=== PATIENT | male | born 1990 | race Caucasian/White ===

== ENCOUNTER 2016-10-23 17:11 | Emergency (ER) | payer SELFPAY ==
[2016-10-23 17:17] VITALS: BP 139/84; PULSE 76; RESP 20; TEMP 98.5
--- NOTE | 2016-10-23 17:29 | ED ---
General Adult HPI - General Chief complaint: Extremity Problem,Nontraumatic Stated complaint: RT ARM SWELLING/PAIN Time Seen by Provider: 10/23/16 17:21 Source: patient, RN notes reviewed Mode of arrival: ambulatory Limitations: no limitations - History of Present Illness Initial comments: Patient 26-year-old male who presents emergency room today with a chief complaint of increased pain to the right elbow was swelling. Does admit that he was seen in the emergency room approximately a week ago diagnosed with bursitis. States he was placed on antibiotics along with steroids and pain medication. He states he is taking his medications with no relief the symptoms. He does admit to 3 days ago he slipped on the ice falling down landing on the right elbow. States that his noticed some increased swelling to the area. States still having tenderness with flexion. He denies any other complaints or symptoms. Patient denies any recent fever, chills, shortness of breath, chest pain, back pain, abdominal pain, nausea or vomiting, numbness or tingling, dysuria or hematuria, constipation or diarrhea, headaches or visual changes, or any other complaints. - Related Data Home Medications Medication Instructions Recorded Confirmed [id number] 2 tab PO Q8H PRN 10/23/16 10/23/16 [Excedrin] Previous Rx's Medication Instructions Recorded Cephalexin [Keflex] 500 mg PO Q12HR 10 Days 10/23/16 Allergies Allergy/AdvReac Type Severity Reaction Status Date / Time nightshade Allergy Unknown Uncoded 10/23/16 17:17 Review of Systems ROS Statement: Those systems with pertinent positive or pertinent negative responses have been documented in the HPI. ROS Other: All systems not noted in ROS Statement are negative. Past Medical History Additional Past Medical History / Comment(s): cysts on kidneys History of Any Multi-Drug Resistant Organisms: None Reported Past Surgical History: No Surgical Hx Reported Past Psychological History: Anxiety, Bipolar, Depression Smoking Status: Current every day smoker Past Alcohol Use History: Occasional Past Drug Use History: Marijuana General Exam - General Exam Comments Initial Comments: General: The patient is awake and alert, in no distress, and does not appear acutely ill. Neck: The neck is supple, there is no tenderness or JVD. Cardiovascular: There is a regular rate and rhythm. No murmur, rub or gallop is appreciated. Respiratory: Lungs are clear to auscultation, respirations are non-labored, breath sounds are equal. No wheezes, stridor, rales, or rhonchi. Musculoskeletal: Mild swelling to the right elbow and forearm. Patient shows full range motion with flexion and extension. Sensations are intact pulses are bilaterally 2+. Strength 5/5. Mild tenderness to the posterior olecranon. Neurological: A&O x 3. CN II-XII intact, There are no obvious motor or sensory deficits. Coordination appears grossly intact. Speech is normal. Skin: Skin is warm and dry and no rashes or lesions are noted. Psychiatric: Normal mood and affect. Limitations: no limitations Course Vital Signs 10/23/16 17:14 Temperature 98.5 F Pulse Rate 76 Respiratory 20 Rate Blood Pressure 139/84 O2 Sat by Pulse 98 Oximetry Medical Decision Making - Medical Decision Making Patient reexamined at this time shows no signs of distress. Patient was also seen by attending physician Dr. Pollard. Patient's x-rays are unremarkable. Advised covered with antibiotics of Keflex for cellulitis. Advised to follow- up family doctor Disposition Clinical Impression: Cellulitis Disposition: HOME SELF-CARE Condition: Good Instructions: Cellulitis (ED) Additional Instructions: Please use medication as discussed. Please follow-up with family doctor in the next 2 days of symptoms have not improved. Please return to emergency room if the symptoms increase or worsen or for any other concerns. Prescriptions: Cephalexin [Keflex] 500 mg PO Q12HR 10 Days Referrals: None,Stated [Primary Care Provider] - 1-2 days Narayan Calvin MD [REFERRING] - 1-2 days Jeremiah Boykin MD [Medical Doctor] - 1-2 days Time of Disposition: 18:15
--- NOTE | 2016-10-23 18:03 | XR ---
EXAMINATION TYPE: XR elbow complete RT DATE OF EXAM: 10/23/2016 5:56 PM CLINICAL HISTORY: Right elbow pain after injury a few days ago TECHNIQUE: Frontal, lateral and oblique images of the right elbow are obtained. COMPARISON: None FINDINGS: There is no acute fracture/dislocation evident in the right elbow. No abnormal fat pad si gns are seen. Mild subcutaneous edema is present along the ulnar aspect. IMPRESSION: There is no acute fracture or dislocation in the right elbow.
== END 2016-10-23 18:30 | disposition home or self-care (01) ==
LOC: EC 17:11
DX: L03.113 Cellulitis of right upper limb (principal); F17.200 Nicotine dependence, unspecified, uncomplicated
CPT/HCPCS: 99283

== ENCOUNTER 2017-10-31 04:37 | Inpatient (IN) | payer MEDICAID, OTHER ==
[2017-10-31 06:11] LABS: Amphetamine Screen,Urine Not Detected (NotDetected); Barbiturate Screen,Urine Not Detected (NotDetected); Benzodiazepines Screen,Urine Not Detected (NotDetected); Cocaine Screen,Urine Detected (NotDetected); Methadone Screen, Urine Not Detected (NotDetected); Opiate Screen,Urine Not Detected (NotDetected); Oxycodone Screen, Urine Not Detected (NotDetected); Phencyclidine Screen,Urine Not Detected (NotDetected); Tricyclic Antidepressant,Urine Not Detected (NotDetected); Urn Cannabinoid Scrn Detected (NotDetected)
[2017-10-31 06:17] LABS: Basophils % (A) 0 %; Eosinophils # (A) 0.2 k/uL (0-0.7); Eosinophils % (A) 2 %; HCT 53.4 % (39.0-53.0); HGB 18.6 gm/dL (13.0-17.5); Lymphocytes # (A) 2.1 k/uL (1.0-4.8); Lymphocytes % (A) 21 %; MCH 32.4 pg (25.0-35.0); MCHC 34.7 g/dL (31.0-37.0); MCV 93.2 fL (80.0-100.0); Mean Platelet Volume 6.6; Monocytes # (A) 0.6 k/uL (0-1.0); Monocytes % (A) 6 %; Neutrophils # (A) 6.9 k/uL (1.3-7.7); Neutrophils % (A) 70 %; Platelet Count 203 k/uL (150-450); RBC 5.73 m/uL (4.30-5.90); RDW 12.6 % (11.5-15.5)
[2017-10-31 06:23] LABS: Acetaminophen <10.0 ug/mL; Alcohol 13 mg/dL; Anion Gap 17 mmol/L; Blood Urea Nitrogen 11 mg/dL (9-20); Calcium 10.2 mg/dL (8.4-10.2); Carbon Dioxide 22 mmol/L (22-30); Chloride 105 mmol/L (98-107); Glucose 94 mg/dL (74-99); Potassium 4.1 mmol/L (3.5-5.1); Sodium 144 mmol/L (137-145)
[2017-10-31] MEDS ORDERED: NICOTINE 14MG/24HR PATCH TRANSDERM STA (07:10)
--- NOTE | 2017-10-31 08:08 | ED ---
Psych HPI - General Chief Complaint: Psychiatric Symptoms Stated Complaint: suicidal Time Seen by Provider: 10/31/17 04:50 Source: patient Mode of arrival: ambulatory Limitations: physical limitation (Uncooperative with history and physical) - History of Present Illness Initial Comments: 's patient is 27-year-old man who is here to have psychiatric evaluation. It is reported to me that he made suicidal statements to have associated. He reportedly had a recent breakup. The patient is not forthcoming with me at all regarding the current situation. he is refusing to discuss the circumstances MD Complaint: suicidal ideation, feels depressed -: hour(s) Context: significant life stressor - Related Data Previous Rx's Medication Instructions Recorded FLUoxetine HCL [PROzac] 20 mg PO DAILY #30 cap 11/03/17 Imipramine [Tofranil] 25 mg PO HS #30 tab 11/03/17 Nicotine Polacrilex [Nicorette] 2 mg BUCCAL Q4HR PRN #0 gum 11/03/17 Allergies Allergy/AdvReac Type Severity Reaction Status Date / Time nightshade Allergy Mild Unknown Uncoded 10/31/17 10:07 Review of Systems ROS Statement: Those systems with pertinent positive or pertinent negative responses have been documented in the HPI. ROS Other: All systems not noted in ROS Statement are negative. Limitations: ROS unobtainable due to patients medical condition Past Medical History Additional Past Medical History / Comment(s): cysts on kidneys, cellulitus History of Any Multi-Drug Resistant Organisms: None Reported Past Surgical History: No Surgical Hx Reported Past Psychological History: ADD/ADHD, Anxiety, Bipolar, Depression Smoking Status: Current every day smoker Past Alcohol Use History: Occasional Past Drug Use History: Cocaine, Marijuana General Exam Limitations: no limitations General appearance: alert, in no apparent distress Head exam: Present: atraumatic, normocephalic Eye exam: Present: normal appearance. Absent: scleral icterus, conjunctival injection Neck exam: Present: normal inspection Respiratory exam: Present: normal lung sounds bilaterally. Absent: respiratory distress, wheezes, rales, rhonchi Cardiovascular Exam: Present: regular rate, normal rhythm, normal heart sounds GI/Abdominal exam: Present: soft. Absent: tenderness, guarding, rebound, rigid Neurological exam: Present: alert, normal gait Psychiatric exam: Present: agitated Skin exam: Present: warm, dry, normal color Course Vital Signs 10/31/17 10/31/17 04:46 08:58 Temperature 97.9 F 97.8 F Pulse Rate 116 H 94 Respiratory 18 16 Rate Blood Pressure 153/85 123/69 O2 Sat by Pulse 95 96 Oximetry Medical Decision Making - Medical Decision Making This patient is 27-year-old man who is brought in for depression and reportedly making suicidal statements. The patient was not fully forthcoming during the history and physical and will be admitted - Lab Data Result diagrams: 10/31/17 05:56 10/31/17 05:56 Lab Results 10/31/17 10/31/17 10/31/17 Range/Units 05:44 05:56 05:56 WBC 10.0 (3.8-10.6) k/uL RBC 5.73 (4.30-5.90) m/uL Hgb 18.6 H (13.0-17.5) gm/dL Hct 53.4 H (39.0-53.0) % MCV 93.2 (80.0-100.0) fL MCH 32.4 (25.0-35.0) pg MCHC 34.7 (31.0-37.0) g/dL RDW 12.6 (11.5-15.5) % Plt Count 203 (150-450) k/uL Neutrophils % 70 % Lymphocytes % 21 % Monocytes % 6 % Eosinophils % 2 % Basophils % 0 % Neutrophils # 6.9 (1.3-7.7) k/uL Lymphocytes # 2.1 (1.0-4.8) k/uL Monocytes # 0.6 (0-1.0) k/uL Eosinophils # 0.2 (0-0.7) k/uL Basophils # 0.0 (0-0.2) k/uL Sodium 144 (137-145) mmol/L Potassium 4.1 (3.5-5.1) mmol/L Chloride 105 (98-107) mmol/L Carbon Dioxide 22 (22-30) mmol/L Anion Gap 17 mmol/L BUN 11 (9-20) mg/dL Creatinine 0.84 (0.66-1.25) mg/dL Est GFR (MDRD) Af Amer >60 (>60 ml/min/1.73 sqM) Est GFR (MDRD) Non-Af >60 (>60 ml/min/1.73 sqM) Glucose 94 (74-99) mg/dL Calcium 10.2 (8.4-10.2) mg/dL TSH (0.465-4.680) mIU/L Urine Opiates Screen Not Detected (NotDetected) Ur Oxycodone Screen Not Detected (NotDetected) Urine Methadone Screen Not Detected (NotDetected) Ur Propoxyphene Screen Not Detected (NotDetected) Acetaminophen <10.0 ug/mL Ur Barbiturates Screen Not Detected (NotDetected) U Tricyclic Antidepress Not Detected (NotDetected) Ur Phencyclidine Scrn Not Detected (NotDetected) Ur Amphetamines Screen Not Detected (NotDetected) U Methamphetamines Scrn Not Detected (NotDetected) U Benzodiazepines Scrn Not Detected (NotDetected) Urine Cocaine Screen Detected H (NotDetected) U Marijuana (THC) Screen Detected H (NotDetected) Serum Alcohol 13 mg/dL 10/31/17 Range/Units 05:56 WBC (3.8-10.6) k/uL RBC (4.30-5.90) m/uL Hgb (13.0-17.5) gm/dL Hct (39.0-53.0) % MCV (80.0-100.0) fL MCH (25.0-35.0) pg MCHC (31.0-37.0) g/dL RDW (11.5-15.5) % Plt Count (150-450) k/uL Neutrophils % % Lymphocytes % % Monocytes % % Eosinophils % % Basophils % % Neutrophils # (1.3-7.7) k/uL Lymphocytes # (1.0-4.8) k/uL Monocytes # (0-1.0) k/uL Eosinophils # (0-0.7) k/uL Basophils # (0-0.2) k/uL Sodium (137-145) mmol/L Potassium (3.5-5.1) mmol/L Chloride (98-107) mmol/L Carbon Dioxide (22-30) mmol/L Anion Gap mmol/L BUN (9-20) mg/dL Creatinine (0.66-1.25) mg/dL Est GFR (MDRD) Af Amer (>60 ml/min/1.73 sqM) Est GFR (MDRD) Non-Af (>60 ml/min/1.73 sqM) Glucose (74-99) mg/dL Calcium (8.4-10.2) mg/dL TSH 1.140 (0.465-4.680) mIU/L Urine Opiates Screen (NotDetected) Ur Oxycodone Screen (NotDetected) Urine Methadone Screen (NotDetected) Ur Propoxyphene Screen (NotDetected) Acetaminophen ug/mL Ur Barbiturates Screen (NotDetected) U Tricyclic Antidepress (NotDetected) Ur Phencyclidine Scrn (NotDetected) Ur Amphetamines Screen (NotDetected) U Methamphetamines Scrn (NotDetected) U Benzodiazepines Scrn (NotDetected) Urine Cocaine Screen (NotDetected) U Marijuana (THC) Screen (NotDetected) Serum Alcohol mg/dL Disposition Clinical Impression: Depression, Suicidal ideation Disposition: ADMITTED IP TO THIS HOSP Condition: Fair
[2017-10-31 08:59] VITALS: RESP 16
[2017-10-31] MEDS ORDERED: ACETAMINOPHEN TAB 325 MG TAB PO PRN (10:03)
[2017-10-31] MEDS ORDERED: MAGNESIUM HYDROXIDE 2,400 MG/10 ML CUP PO PRN (10:03)
[2017-10-31] MEDS ORDERED: ZIPRASIDONE 20 MG VIAL IM PRN (10:03)
[2017-10-31] MEDS ORDERED: LORazepam 1 MG TAB PO PRN (10:03)
[2017-10-31] MEDS ORDERED: MAG HYDROX/AL HYDROX/SIMETH 30 ML CUP PO PRN (10:03)
--- NOTE | 2017-10-31 13:56 | P.HPMEDMHU ---
History of Present Illness H&P Date: 10/31/17 Chief Complaint: suicidal ideations 27 y/o male that comeswith suicidal ideation. Patient says he has had these feelings for lomg time. Bu got worse when his significant other left him.He has not tried to kill himself. Review of Systems Constitutional: Denies chills, Denies fever Eyes: denies blurred vision, denies pain Ears: right: ear discharge Ears, nose, mouth and throat: Denies headache, Denies sore throat Cardiovascular: Denies chest pain, Denies shortness of breath Respiratory: Denies cough, Denies hemoptysis, Denies pleurisy Gastrointestinal: Denies abdominal pain, Denies diarrhea, Denies nausea, Denies vomiting Musculoskeletal: Denies arm numbness/tingling, Denies leg numbness/tingling, Denies myalgias Integumentary: Denies rash Past Medical History Additional Past Medical History / Comment(s): cysts on kidneys, cellulitus History of Any Multi-Drug Resistant Organisms: None Reported Past Surgical History: No Surgical Hx Reported Past Psychological History: ADD/ADHD, Anxiety, Bipolar, Depression Smoking Status: Current every day smoker Past Alcohol Use History: Occasional Past Drug Use History: Cocaine, Marijuana Medications and Allergies Home Medications Medication Instructions Recorded Confirmed Type No Known Home Medications [No 10/31/17 10/31/17 History Known Home Medications] Allergies Allergy/AdvReac Type Severity Reaction Status Date / Time nightshade Allergy Mild Unknown Uncoded 10/31/17 10:07 Physical Exam Vitals: Vital Signs Temp Pulse Resp BP Pulse Ox 10/31/17 08:58 97.8 F 94 16 123/69 96 10/31/17 04:46 97.9 F 116 H 18 153/85 95 Intake and Output 10/30/17 10/31/17 10/31/17 22:59 06:59 14:59 Other: Weight 88.451 kg multiple peircing to fce and ears - Constitutional General appearance: no acute distress - EENT Eyes: EOMI, PERRLA Ears: bilateral: normal, negative: bulging, bullous, erythema - Neck Neck: no lymphadenopathy - Respiratory Respiratory: bilateral: CTA, negative: rales, rhonchi, wheezing - Cardiovascular Rhythm: regular Heart sounds: normal: S1, S2 - Gastrointestinal General gastrointestinal: normal bowel sounds - Integumentary muliple tattoos throughout body Integumentary: normal - Neurologic Neurologic: CNII-XII intact - Musculoskeletal Musculoskeletal: gait normal, strength equal bilaterally - Psychiatric Psychiatric: A&O x's 3, appropriate affect Cranial Nerve Examination - Cranial Nerves Cranial Nerve II- Optic: Intact Cranial Nerve III- Oculomotor: Intact Cranial Nerve IV- Trochlear: Intact Cranial Nerve V- Trigeminal: Intact Cranial Nerve - Abducens: Intact Cranial Nerve VII- Facial: Intact Cranial Nerve VIII- Auditory: Intact Cranial Nerve IX- Glossopharyngeal: Intact Cranial Nerve X- Vagus: Intact Cranial Nerve XI- Accessory: Intact Cranial Nerve XII- Hypoglossal: Intact Results CBC & Chem 7: 10/31/17 05:56 10/31/17 05:56 Labs: Abnormal Lab Results - Last 24 Hours (Table) 10/31/17 10/31/17 Range/Units 05:44 05:56 Hgb 18.6 H (13.0-17.5) gm/dL Hct 53.4 H (39.0-53.0) % Urine Cocaine Screen Detected H (NotDetected) U Marijuana (THC) Screen Detected H (NotDetected) Assessment and Plan (1) Depression Narrative/Plan: per psych Current Visit: Yes Status: Acute Code(s): F32.9 - MAJOR DEPRESSIVE DISORDER , SINGLE EPISODE, UNSPECIFIED SNOMED Code(s): 34636835 (2) Suicidal ideation Narrative/Plan: per psych Current Visit: Yes Status: Acute Code(s): R45.851 - SUICIDAL IDEATIONS SNOMED Code(s): 3387802
[2017-10-31] MEDS: NICOTINE 21MG/24HR PATCH TRANSDERM SCH (13:57)
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
[2017-11-01] MEDS: NICOTINE 21MG/24HR PATCH TRANSDERM SCH (08:43)
[2017-11-01] MEDS ORDERED: NICOTINE 14MG/24HR PATCH TRANSDERM SCH (09:00)
[2017-11-01] MEDS: FLUoxetine HCL 20 MG CAP PO SCH (13:31)
[2017-11-01] MEDS: NICOTINE POLACRILEX 2 MG GUM BUCCAL PRN ×3 (15:02→22:27)
--- NOTE | 2017-11-01 20:21 | PN ---
PROGRESS NOTE DATE OF SERVICE: 11/01/2017 CHIEF COMPLAINT: The patient was depressed. He had anxiety and panic symptoms. He has a history of PTSD symptoms. He has had a significant past history of substance use and ongoing daily use of marijuana at present. INTERVAL HISTORY: Patient has been doing fair. He had a quiet evening last night. He slept fair. Today he has been up and about. He attends groups. He comes out in the day area. He can be quite intense at times. Overall staff feel that he seems just a little more comfortable and a little less distressed compared to how he presented yesterday. When I talked to the patient he did have a calmer manner. He said that he would consider getting started on a medication that would have an indication for panic and depression in particular. He says he is very much opposed to pills because he has seen so many problems his mother has been going through, as she apparently abuses medications. The patient was willing to set up a meeting with his mother in order to work on some discharge issues. He acknowledges that there is stress between the two of them, though they do have an ongoing relationship, so it makes it difficult if at least some things are not a little more settled there. He has not had change in his general health. He tolerates his psychotropic medications. MENTAL STATUS: Patient gave fair eye contact. He was somewhat restless. His thoughts were clear. His affect was intense at times, his mood reserved. He seemed a little distressed. ASSESSMENT: I will continue the current diagnosis and treatment plan. I will start the patient on Prozac 20 mg a day. I had an extensive discussion with the patient regarding medication issues. He did ask a few questions about the role of marijuana, and I shared with him that it would need to be something he could look into once he is out of the hospital; however, there is very little information in psychiatric literature that there would be a role for marijuana for any treatment issues, though on the other hand there are significant studies indicating the potential risks in relationship to mood and anxiety disorders. We will set up a family meeting with the patient's mother as part of discharge planning. MMHOAL / EVITA: [id number] /
[2017-11-02 07:08] VITALS: TEMP 98.1
[2017-11-02] MEDS: FLUoxetine HCL 20 MG CAP PO SCH (08:30)
[2017-11-02] MEDS: NICOTINE POLACRILEX 2 MG GUM BUCCAL PRN ×3 (08:30→18:21)
[2017-11-02] MEDS ORDERED: OLANZapine 5 MG TAB PO ONE (12:59)
--- NOTE | 2017-11-02 16:40 | PN ---
PROGRESS NOTE DATE OF SERVICE: 11/02/2017. CHIEF COMPLAINT: The patient was depressed. He had anxiety and panic symptoms. He has a history of PTSD symptoms. He has had a significant past history of substance use and ongoing daily use of marijuana at present. INTERVAL HISTORY: Patient has been doing fair. He had a quiet evening last night. He was wondering about getting the medication for sleep as he says his sleep has not been consistently very good, particularly for quite a time leading up to his hospitalization. He does feel that he is ready to be discharged as he feels he can handle his situations at home. It is noted that we had a family meeting with the patient and his mother. It was a very contentious meeting. The patient spent most all of the time talking about anger he has towards any number of things with his mother including how she responds to him in what he perceives as a very negative way. Also, he says that he tries to watch over her because she has serious problems of her own including significant drug use as well as having people living in her home who have serious drug problems and sells. From the mother's part, she struggles with how he might be best supported in what he needs to do for stabilizing his own mental health issues. It was not clear, but into the family meeting whether or not the 2 of them would be able to establish a way of communicating that would be more supportive for both. After the meeting, the patient was heard on the unit, continued to complain about any number of things about how he was treated by his mother. The patient has struggled with the idea of needing to focus on himself and improving his own self-esteem. We did not spend much time in an effort to address substance use issues as the patient has been very closed off on this subject. He does say that he is willing to be discharged tomorrow and sees the benefit of following through with individual psychotherapy, and he has not had change in his general health. He tolerates his psychotropic medications. MENTAL STATUS: Patient was restless. He had an intense manner. In the family meeting, he was angry and loud. He was significantly distressed. ASSESSMENT: I will continue the current diagnosis and treatment plan. I will start the patient on Tofranil 25 mg at bedtime. He will continue Prozac 20 mg a day. We will plan on discharge tomorrow. MMODL / IJN: [id number] /
[2017-11-02] MEDS ORDERED: IMIPRAMINE 25 MG TAB PO SCH (21:00)
[2017-11-03 07:06] VITALS: BP 124/69; PULSE 94
[2017-11-03] MEDS: FLUoxetine HCL 20 MG CAP PO SCH (08:25)
[2017-11-03] MEDS: NICOTINE POLACRILEX 2 MG GUM BUCCAL PRN (08:25)
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
== END 2017-11-03 12:40 | disposition home or self-care (01) | DRG 885 ==
LOC: EC 04:37 → 3MHU 08:54
PROVIDERS: ADMIT Psychiatry & Neurology Psychiatry; ATTEND Psychiatry & Neurology Psychiatry
DX: F33.2 Major depressive disorder, recurrent severe without psychotic features (principal); R45.851 Suicidal ideations; F12.288 Cannabis dependence with other cannabis-induced disorder; F17.200 Nicotine dependence, unspecified, uncomplicated; F41.8 Other specified anxiety disorders; F43.10 Post-traumatic stress disorder, unspecified; F90.9 Attention-deficit hyperactivity disorder, unspecified type; Z79.899 Other long term (current) drug therapy
CPT/HCPCS: 36415; 80048; 80306; 80320; 82075; 83520; 84443; 85025; 99285

== ENCOUNTER 2018-05-19 13:25 | Emergency (ER) | payer MEDICAID, OTHER ==
[2018-05-19] MEDS ORDERED: KETOROLAC 30 MG/ML 1 ML VIAL IVP STA (13:44)
[2018-05-19] MEDS ORDERED: ASPIRIN 81 MG PO STA (13:44)
--- NOTE | 2018-05-19 13:47 | ED ---
Chest Pain HPI - General Chief Complaint: Chest Pain Stated Complaint: chest pain Time Seen by Provider: 05/19/18 13:38 Source: patient, RN notes reviewed Mode of arrival: ambulatory Limitations: no limitations - History of Present Illness Initial Comments: This is a 27-year-old male presents emergency Department chief complaint of chest pain. Patient states it was centralized chest pain which has now spread diffusely across his chest that into his lower back. Patient states that hurts to twist and bend he does cough is a daily smoker. Does use marijuana and cocaine. Patient denies any shortness breath at this time denies headache, dizziness, nausea, diaphoretic episodes. He has no prior cardiac disease he has no history of hyperlipidemia, hypertension or diabetes. - Related Data Previous Rx's Medication Instructions Recorded FLUoxetine HCL [PROzac] 20 mg PO DAILY #30 cap 11/03/17 Imipramine [Tofranil] 25 mg PO HS #30 tab 11/03/17 Nicotine Polacrilex [Nicorette] 2 mg BUCCAL Q4HR PRN #0 gum 11/03/17 Ibuprofen [Motrin] 600 mg PO Q8HR PRN #30 tab 05/19/18 Allergies Allergy/AdvReac Type Severity Reaction Status Date / Time nightshade Allergy Mild Unknown Uncoded 05/19/18 13:36 Review of Systems ROS Statement: Those systems with pertinent positive or pertinent negative responses have been documented in the HPI. ROS Other: All systems not noted in ROS Statement are negative. EKG Findings - EKG Comments: EKG Findings:: EKG performed at 13:45 normal sinus rhythm with a rate of 66 ND interval 126 QRS 102 QT/QTC 388/406 Past Medical History Additional Past Medical History / Comment(s): cysts on kidneys, cellulitus History of Any Multi-Drug Resistant Organisms: None Reported Past Surgical History: No Surgical Hx Reported Past Psychological History: ADD/ADHD, Anxiety, Bipolar, Depression Smoking Status: Current every day smoker Past Alcohol Use History: Occasional Past Drug Use History: Cocaine, Marijuana General Exam Limitations: no limitations General appearance: alert, in no apparent distress Head exam: Present: atraumatic, normocephalic, normal inspection Eye exam: Present: normal appearance, PERRL, EOMI. Absent: scleral icterus, conjunctival injection, periorbital swelling ENT exam: Present: normal exam, normal oropharynx, mucous membranes moist Neck exam: Present: normal inspection, full ROM. Absent: tenderness, meningismus, lymphadenopathy Respiratory exam: Present: normal lung sounds bilaterally, chest wall tenderness. Absent: respiratory distress, wheezes, rales, rhonchi, stridor Cardiovascular Exam: Present: regular rate, normal rhythm, normal heart sounds. Absent: systolic murmur, diastolic murmur, rubs, gallop, clicks GI/Abdominal exam: Present: soft, normal bowel sounds. Absent: distended, tenderness, guarding, rebound, rigid Course Vital Signs 05/19/18 13:34 Temperature 98.7 F Pulse Rate 92 Respiratory 18 Rate Blood Pressure 119/82 O2 Sat by Pulse 96 Oximetry Chest Pain MDM - MDM 27-year-old male presented for diffuse pain in his torso region. Patient states initially started stressed. Patient had lab work, EKG, chest x-ray which were all unremarkable. He has positive for benzodiazepines and marijuana there is a history of cocaine abuse. Patient's pain is nonspecific cc muscular skeletal nature. Symptoms started over 24 hours ago. Disposition Clinical Impression: Chest wall pain, Musculoskeletal pain Disposition: HOME SELF-CARE Condition: Stable Instructions: Chest Pain (ED) Additional Instructions: Please return to the Emergency Department if symptoms worsen or any other concerns. Prescriptions: Ibuprofen [Motrin] 600 mg PO Q8HR PRN #30 tab PRN Reason: Pain Is patient prescribed a controlled substance at d/c from ED?: No Referrals: None,Stated [Primary Care Provider] - 1-2 days Time of Disposition: 15:06
--- NOTE | 2018-05-19 14:20 | XR ---
EXAMINATION TYPE: XR chest 2V DATE OF EXAM: 05/19/2018 COMPARISON: NONE HISTORY: Chest pain TECHNIQUE: Frontal and lateral views of the chest are obtained. FINDINGS: There is no focal air space opacity, pleural effusion, or pneumothorax seen. The cardiac silhouette size is within normal limits. The osseous structures are intact. IMPRESSION: No acute cardiopulmonary process.
[2018-05-19 14:24] LABS: Basophils % (A) 1 %; Eosinophils # (A) 0.1 k/uL (0-0.7); Eosinophils % (A) 1 %; HCT 50.2 % (39.0-53.0); HGB 17.7 gm/dL (13.0-17.5); Lymphocytes # (A) 1.7 k/uL (1.0-4.8); Lymphocytes % (A) 29 %; MCH 32.2 pg (25.0-35.0); MCHC 35.2 g/dL (31.0-37.0); MCV 91.6 fL (80.0-100.0); Mean Platelet Volume 7.4; Monocytes # (A) 0.6 k/uL (0-1.0); Monocytes % (A) 10 %; Neutrophils # (A) 3.4 k/uL (1.3-7.7); Neutrophils % (A) 57 %; Platelet Count 145 k/uL (150-450); RBC 5.48 m/uL (4.30-5.90); WBC 5.9 k/uL (3.8-10.6)
[2018-05-19 14:37] LABS: ALT 33 U/L (21-72); AST 34 U/L (17-59); Albumin 4.6 g/dL (3.5-5.0); Alkaline Phosphatase 89 U/L (38-126); Anion Gap 10 mmol/L; Blood Urea Nitrogen 10 mg/dL (9-20); Calcium 9.1 mg/dL (8.4-10.2); Carbon Dioxide 23 mmol/L (22-30); Chloride 106 mmol/L (98-107); Glucose 90 mg/dL (74-99); INR 1.1 (<1.2); Partial Thromboplastin Time 28.4 sec (22.0-30.0); Prothrombin Time 10.4 sec (9.0-12.0); Sodium 139 mmol/L (137-145); Total Bilirubin 0.6 mg/dL (0.2-1.3); Total Protein 7.6 g/dL (6.3-8.2)
[2018-05-19 14:39] LABS: Amphetamine Screen,Urine Not Detected (NotDetected); Barbiturate Screen,Urine Not Detected (NotDetected); Benzodiazepines Screen,Urine Detected (NotDetected); Cocaine Screen,Urine Not Detected (NotDetected); Methadone Screen, Urine Not Detected (NotDetected); Opiate Screen,Urine Not Detected (NotDetected); Oxycodone Screen, Urine Not Detected (NotDetected); Phencyclidine Screen,Urine Not Detected (NotDetected); Tricyclic Antidepressant,Urine Not Detected (NotDetected); Urn Cannabinoid Scrn Detected (NotDetected)
[2018-05-19 15:38] VITALS: BP 108/57; PULSE 66; RESP 16; TEMP 98
== END 2018-05-19 15:37 | disposition home or self-care (01) ==
LOC: EC 13:25
DX: R07.89 Other chest pain (principal); R05 Cough; F17.200 Nicotine dependence, unspecified, uncomplicated; Z91.048 Other nonmedicinal substance allergy status
CPT/HCPCS: 36415; 93005; 80053; 83735; 84484; 85025; 85610; 85730; 80306; 71046; 99285; 96374; J1885

== ENCOUNTER 2020-10-13 18:19 | Emergency (ER) | payer OTHER ==
[2020-10-13 18:28] VITALS: BP 130/74; PULSE 117; RESP 18; TEMP 98.7
--- NOTE | 2020-10-13 18:46 | ED ---
General Adult HPI - General Chief complaint: Extremity Problem,Nontraumatic Stated complaint: elbow pain Time Seen by Provider: 10/13/20 18:28 Source: patient Mode of arrival: ambulatory Limitations: no limitations - History of Present Illness Initial comments: Dictation was produced using Zoom dictation software. please excuse any grammatical, word or spelling errors. This patient was cared for during a federal and state declared state of emergency secondary to Covid 19 Chief Complaint: 29-year-old male presents with right elbow redness History of Present Illness: 29-year-old male he has past medical history of elbow cellulitis. Patient states that today he woke up with some redness on his elbow. Patient works as a delivery manager. He does not apply an inordinate amount of pressure to his right elbow. Patient states there is some mild pain. Denies any trauma to the elbow. Patient has no other complaints at this time. The ROS documented in this emergency department record has been reviewed and confirmed by me. Those systems with pertinent positive or negative responses have been documented in the HPI. All other systems are other negative and/or noncontributory. PHYSICAL EXAM: General Impression: Alert and oriented x3, not in acute distress HEENT: Normocephalic atraumatic, extra-ocular movements intact, pupils equal and reactive to light bilaterally, mucous membranes moist. Cardiovascular: Heart regular rate and rhythm Chest: Able to complete full sentences, no retractions, no tachypnea Right elbow: 3 x 3 cm area of erythema over the olecranon process, no fluctuance, no induration Musculoskeletal: Pulses present and equal in all extremities, no peripheral edema Motor: no focal deficits noted Neurological: CN II-XII grossly intact, no focal motor or sensory deficits noted Skin: Intact with no visualized rashes Psych: Normal affect and mood ED course: 29-year-old Male presents with clinical presentation consistent with mild right elbow cellulitis. Patient given Keflex starter pack. He is given prescription for Keflex. Does not have a primary care physician. He is given referral to one otherwise he should return to the emergency department if his symptoms do not improve in the next 4-5 days. - Related Data Previous Rx's Medication Instructions Recorded FLUoxetine HCL [PROzac] 20 mg PO DAILY #30 cap 11/03/17 Imipramine [Tofranil] 25 mg PO HS #30 tab 11/03/17 Nicotine Polacrilex [Nicorette] 2 mg BUCCAL Q4HR PRN #0 gum 11/03/17 Ibuprofen [Motrin] 600 mg PO Q8HR PRN #30 tab 05/19/18 Cephalexin [Keflex] 500 mg PO Q6HR 5 Days #20 cap 10/13/20 Allergies Allergy/AdvReac Type Severity Reaction Status Date / Time nightshade Allergy Mild Unknown Uncoded 05/19/18 13:36 Review of Systems ROS Statement: Those systems with pertinent positive or pertinent negative responses have been documented in the HPI. ROS Other: All systems not noted in ROS Statement are negative. Past Medical History Additional Past Medical History / Comment(s): cysts on kidneys, cellulitus History of Any Multi-Drug Resistant Organisms: None Reported Past Surgical History: No Surgical Hx Reported Past Psychological History: ADD/ADHD, Anxiety, Bipolar, Depression Smoking Status: Current some day smoker Past Alcohol Use History: Occasional Past Drug Use History: Cocaine, Marijuana General Exam Limitations: no limitations Course Vital Signs 10/13/20 18:26 Temperature 98.7 F Pulse Rate 117 H Respiratory 18 Rate Blood Pressure 130/74 O2 Sat by Pulse 99 Oximetry Disposition Clinical Impression: Cellulitis Disposition: HOME SELF-CARE Condition: Good Instructions (If sedation given, give patient instructions): Cellulitis (ED) Additional Instructions: It is important to have a primary care physician to care for her overall health. You are given a referral to Dr. Calvin. Prescriptions: Cephalexin [Keflex] 500 mg PO Q6HR 5 Days #20 cap Is patient prescribed a controlled substance at d/c from ED?: No Referrals: Narayan Calvin MD [REFERRING] - 1-2 days Time of Disposition: 18:48
[2020-10-13] MEDS ORDERED: CEPHALEXIN 500MG STARTER PACK 4 CAP BTL PO STA (18:50)
== END 2020-10-13 18:53 | disposition home or self-care (01) ==
LOC: EC 18:19
DX: L03.90 Cellulitis, unspecified (principal); F17.200 Nicotine dependence, unspecified, uncomplicated; Z91.018 Allergy to other foods
CPT/HCPCS: 99283

== ENCOUNTER 2020-11-03 22:49 | Emergency (ER) | payer OTHER ==
[2020-11-03 22:53] VITALS: BP 148/78; PULSE 88; RESP 16; TEMP 98.2
[2020-11-03] MEDS ORDERED: ACET/COD 300 MG/30 MG STARTER PACK 6 TAB BTL PO STA (23:00)
[2020-11-03] MEDS ORDERED: ONDANSETRON 4 MG ODT STARTER PACK 2 TAB BTL PO STA (23:00)
--- NOTE | 2020-11-03 23:01 | ED ---
Skin/Abscess/FB HPI - General Chief complaint: Skin/Abscess/Foreign Body Stated complaint: Mouth Abscess Time Seen by Provider: 11/03/20 22:54 Source: patient Mode of arrival: ambulatory Limitations: no limitations - History of Present Illness Initial comments: 30-year-old male patient presents to the emergency department today for evaluation of dental abscess. Patient states that he started having some dental pain a few days ago. He developed an abscess, was seen at [facility] yesterday, and started on clindamycin. He was also given ibuprofen and oral lidocaine for pain relief. States that throughout the night he developed worse swelling to the left side of his face. States that the abscess did break open and is draining blood and pus. Denies any fever or chills. He has had some nausea, denies any vomiting. Denies fever or chills. He does have a dentist appointment scheduled. Patient denies any recent rash, cough, shortness of breath, chest pain, abdominal pain, diarrhea, constipation, back pain, numbness, tingling, dizziness, weakness, hematuria, dysuria, urinary urgency, urinary frequency, headache, visual changes, or any other complaints. - Related Data Previous Rx's Medication Instructions Recorded FLUoxetine HCL [PROzac] 20 mg PO DAILY #30 cap 11/03/17 Imipramine [Tofranil] 25 mg PO HS #30 tab 11/03/17 Nicotine Polacrilex [Nicorette] 2 mg BUCCAL Q4HR PRN #0 gum 11/03/17 Ibuprofen [Motrin] 600 mg PO Q8HR PRN #30 tab 05/19/18 Cephalexin [Keflex] 500 mg PO Q6HR 5 Days #20 cap 10/13/20 Ondansetron [Zofran ODT] 4 mg PO Q8HR PRN #10 tab 11/03/20 Allergies Allergy/AdvReac Type Severity Reaction Status Date / Time nightshade Allergy Mild Unknown Uncoded 05/19/18 13:36 Review of Systems ROS Statement: Those systems with pertinent positive or pertinent negative responses have been documented in the HPI. ROS Other: All systems not noted in ROS Statement are negative. Past Medical History Additional Past Medical History / Comment(s): cysts on kidneys, cellulitus History of Any Multi-Drug Resistant Organisms: None Reported Past Surgical History: No Surgical Hx Reported Past Psychological History: ADD/ADHD, Anxiety, Bipolar, Depression Smoking Status: Current some day smoker Past Alcohol Use History: Occasional Past Drug Use History: Cocaine, Marijuana General Exam Limitations: no limitations General appearance: alert, in no apparent distress, other (This is a well- developed, well-nourished adult male patient in no acute distress. Vital signs upon presentation are temperature 98.2F, pulse 88, respirations 16, blood pressure 148/78, pulse ox 100% on room air.) ENT exam: Present: mucous membranes moist, other (There is left upper dental abscess, very poor dentition. Multiple dental caries. Abscess is draining.). Absent: normal exam Respiratory exam: Present: normal lung sounds bilaterally. Absent: respiratory distress, wheezes, rales, rhonchi, stridor Cardiovascular Exam: Present: regular rate, normal rhythm, normal heart sounds. Absent: systolic murmur, diastolic murmur, rubs, gallop, clicks Neurological exam: Present: alert, oriented X3, CN II-XII intact Psychiatric exam: Present: normal affect, normal mood Skin exam: Present: warm, dry, intact, normal color. Absent: rash Course Vital Signs 11/03/20 22:51 Temperature 98.2 F Pulse Rate 88 Respiratory 16 Rate Blood Pressure 148/78 O2 Sat by Pulse 100 Oximetry Medical Decision Making - Medical Decision Making 30-year-old male patient presents to the emergency department today for evaluation of left added facial swelling and dental abscess. Physical examination did reveal dental abscess over the left upper dentition. Abscess is draining. Fluid. He does have some mild left-sided facial swelling. He is afebrile, vital signs. Tolerating oral intake. He was given clindamycin by urgent care yesterday. She does have an appointment with dentist coming up. He is encouraged to continue the clindamycin. He is given Tylenol codeine starter pack for pain relief. He is also given Zofran for nausea. He is instructed to return if symptoms aren't improved over the next 1-2 days. Return parameters were discussed in detail. He verbalizes understanding and agrees with this plan Disposition Clinical Impression: Dental abscess Disposition: HOME SELF-CARE Condition: Good Instructions (If sedation given, give patient instructions): Dental Abscess (ED) Additional Instructions: Follow-up with the dentist as soon as possible. Continue antibiotics. Take pain medication sparingly for severe symptoms. Return to the emergency department for any new, worsening, or concerning symptoms. Prescriptions: Ondansetron [Zofran ODT] 4 mg PO Q8HR PRN #10 tab PRN Reason: Nausea Is patient prescribed a controlled substance at d/c from ED?: No Referrals: None,Stated [Primary Care Provider] - 1-2 days Time of Disposition: 23:01
== END 2020-11-03 23:12 | disposition home or self-care (01) ==
LOC: EC 22:49
DX: K04.7 Periapical abscess without sinus (principal); K02.9 Dental caries, unspecified; F17.200 Nicotine dependence, unspecified, uncomplicated; Z91.048 Other nonmedicinal substance allergy status
CPT/HCPCS: 99282; S0119

== ENCOUNTER 2023-04-04 00:18 | Emergency (ER) | payer OTHER ==
[2023-04-04 00:24] VITALS: RESP 18; TEMP 98.2
[2023-04-04] MEDS ORDERED: ACETAMINOPHEN TAB 325 MG TAB PO STA (01:21)
--- NOTE | 2023-04-04 01:21 | ED ---
General Adult HPI - General Chief complaint: Extremity Injury, Lower Stated complaint: SWELLING IN LEFT TOE Time Seen by Provider: 04/04/23 00:40 Source: patient Mode of arrival: wheelchair Limitations: no limitations - History of Present Illness Initial comments: 32-year-old male with no significant past medical history presents to the emergency department with a chief complaint of right great toe pain. Patient reports that he was clipping his nails yesterday when he believes he cut them too short. He is complaining of increased redness and swelling to his right great toe. Denies any fevers or purulent discharge to the site. Denies any numbness, tingling, weakness - Related Data Previous Rx's Medication Instructions Recorded FLUoxetine HCL [PROzac] 20 mg PO DAILY #30 cap 11/03/17 Imipramine [Tofranil] 25 mg PO HS #30 tab 11/03/17 Nicotine Gum (Polacrilex) 2 mg BUCCAL Q4HR PRN #0 gum 11/03/17 [Nicorette] Ibuprofen [Motrin] 600 mg PO Q8HR PRN #30 tab 05/19/18 Cephalexin [Keflex] 500 mg PO Q6HR 5 Days #20 cap 10/13/20 Ondansetron [Zofran ODT] 4 mg PO Q8HR PRN #10 tab 11/03/20 Allergies Allergy/AdvReac Type Severity Reaction Status Date / Time nightshade Allergy Mild Unknown Uncoded 04/04/23 00:21 Review of Systems ROS Statement: Those systems with pertinent positive or pertinent negative responses have been documented in the HPI. ROS Other: All systems not noted in ROS Statement are negative. Past Medical History Additional Past Medical History / Comment(s): cysts on kidneys, cellulitus History of Any Multi-Drug Resistant Organisms: None Reported Past Surgical History: No Surgical Hx Reported Past Psychological History: ADD/ADHD, Anxiety, Bipolar, Depression Smoking Status: Current some day smoker Past Alcohol Use History: Occasional Past Drug Use History: Marijuana General Exam - General Exam Comments Initial Comments: General: Alert, in no acute distress is afebrile Head: atraumatic normocephalic. Eyes PERRL, EOMI intact, mucous membranes moist Respiratory: Lungs clear to auscultation bilaterally Cardiovascular: Heart rate regular rate and rhythm Abdominal: Soft without guarding or rebound Extremities: Normal inspection with full range of motion and normal capillary refill Neuroogic: alert and oriented 3, CN II-XII intact, able to ambulate with steady gait Skin: warm dry and intact with normal color Limitations: no limitations Course Vital Signs 04/04/23 04/04/23 00:21 02:01 Temperature 98.2 F Pulse Rate 102 H 73 Respiratory 18 18 Rate Blood Pressure 113/77 127/70 O2 Sat by Pulse 99 98 Oximetry Medical Decision Making - Medical Decision Making Was pt. sent in by a medical professional or institution ([facility] Walsh, [employer]NEY[employer]ITTER, urgent care, hospital, or half-way...) When possible be specific @ -[No] Did you speak to anyone other than the patient for history (EMS, parent, family, police, friend...)? What history was obtained from this source @ -[No] Did you review nursing and triage notes (agree or disagree)? Why? @ -[I reviewed and agree with nursing and triage notes] Were old charts reviewed (outside hosp., previous admission, EMS record, old EKG, old radiological studies, urgent care reports/EKG's, half-way records)? Report findings @ -[No old charts were reviewed] Differential Diagnosis (chest pain, altered mental status, abdominal pain women, abdominal pain men, vaginal bleeding, weakness, fever, dyspnea, syncope, headache, dizziness, GI bleed, back pain, seizure, CVA, palpatations, mental health, musculoskeletal)? @ -[not applicable] EKG interpreted by me (3pts min.). @ -[As above] X-rays interpreted by me (1pt min.). @ -[None done] CT interpreted by me (1pt min.). @ -[None done] U/S interpreted by me (1pt. min.). @ -[None done] What testing was considered but not performed or refused? (CT, X-rays, U/S, labs)? Why? @ -[None] What meds were considered but not given or refused? Why? @ -[None] Did you discuss the management of the patient with other professionals (professionals i.e. REJI Walsh, JOURNEYMAN PIPEFITTER, lab, RT, psych nurse, social service director, digital media director, teacher, submarine advisory team watch officer, adult protective caseworker)? Give summary @ -[No] Was smoking cessation discussed for >3mins.? @ -[No] Was critical care preformed (if so, how long)? @ -[No] Were there social determinants of health that impacted care today? How? (Homelessness, low income, unemployed, alcoholism, drug addiction, transportation, low edu. Level, literacy, decrease access to med. care, [facility], rehab)? @ -[No] Was there de-escalation of care discussed even if they declined (Discuss DNR or withdrawal of care, Hospice)? DNR status @ -[No] What co-morbidities impacted this encounter? (DM, HTN, Smoking, COPD, CAD, Cancer, CVA, ARF, Chemo, Hep., AIDS, mental health diagnosis, sleep apnea, morbid obesity)? @ -[None] Was patient admitted / discharged? Hospital course, mention meds given and route, prescriptions, significant lab abnormalities, going to OR and other pertinent info. @ -Discharged. This is a 32-year-old male presents to the emergency department with left toe pain. Patient had a thorough history and physical exam performed while in the ED. Physical exam consistent with left great toe. He care. Patient had incision and drainage procedure with minimal purulent discharge extracted. Patient discharged in stable condition. Return precautions discussed. Case discussed with Dr. Xiong Geeta who agrees Undiagnosed new problem with uncertain prognosis? @ -[No] Drug Therapy requiring intensive monitoring for toxicity (Heparin, Nitro, Insulin, Cardizem)? @ -[No] Were any procedures done? @ -[No] Diagnosis/symptom? @ -paronychia Acute, or Chronic, or Acute on Chronic? @ -Acute Uncomplicated (without systemic symptoms) or Complicated (systemic symptoms)? @ -uncomplicated Side effects of treatment? @ -[No] Exacerbation, Progression, or Severe Exacerbation? @ -[No] Poses a threat to life or bodily function? How? (Chest pain, [place], [place], pneumonia, PE, COPD, DKA, ARF, appy, cholecystitis, CVA, Diverticulitis, Homicidal, Suicidal, threat to staff... and all critical care pts) @ -Low likelihood Disposition Clinical Impression: Paronychia Disposition: HOME SELF-CARE Condition: Stable Instructions (If sedation given, give patient instructions): Delfin Healy (ED) Additional Instructions: Please return to the nearest emergency department if symptoms worsen or persist Is patient prescribed a controlled substance at d/c from ED?: No Referrals: Yessy Romero FNPBC [Primary Care Provider] - 1-2 days Time of Disposition: 01:21
[2023-04-04 02:02] VITALS: BP 127/70; PULSE 73
== END 2023-04-04 02:10 | disposition home or self-care (01) ==
LOC: EC 00:18
DX: L03.031 Cellulitis of right toe (principal); F17.200 Nicotine dependence, unspecified, uncomplicated; F12.90 Cannabis use, unspecified, uncomplicated; Z86.59 Personal history of other mental and behavioral disorders; Z88.8 Allergy status to other drugs, medicaments and biological substances
CPT/HCPCS: 99283